=== PATIENT | male | born 1960 | race Asian ===

== ENCOUNTER 2016-09-03 20:39 | Emergency (ER) | payer BC ==
[~2016-09-03] VITALS: Ht 172.7 cm; Wt 95.3 kg
[~2016-09-03 20:39] MED LIST: ASPI-1063 PO; CAR1 PO; HYDR12.55 PO; ISOS5TAB3 PO; LOSA25TA11 PO; POTA8CAP PO; VERA180C2 PO; ZOLP10TA2 PO; [UNRECOGNIZED DRUG - OTHER]
[2016-09-03 20:40] VITALS: BP_SYST 150
[2016-09-03 21:16] LABS: BILIRUBIN,URINE NEGATIVE (NEGATIVE); BLOOD, URINE 3+ (NEGATIVE); CLARITY/URINE HAZY (CLEAR); COLOR,URINE YELLOW (YELLOW); GLUCOSE,URINE NEGATIVE (NEGATIVE); KETONES,URINE NEGATIVE (NEGATIVE); LEUKOCYTE ESTERASE ,URINE NEGATIVE (NEGATIVE); NITRITE, URINE NEGATIVE (NEGATIVE); PH,URINE 6.5 (5.0-8.0); PROTEIN URINE NEGATIVE (NEGATIVE); UROBILINOGEN,URINE 0.2 (0.2-1.0)
[2016-09-03 21:25] LABS: BACTERIA,URINE FEW /HPF (None Seen); RBC,URINE >100 /HPF (0-3); WBC,URINE 0-3 /HPF (0-3)
[2016-09-03] MEDS ORDERED: LORazepam 2 MG/ML VIAL (FOR ER USE) IM ONE (22:00)
[2016-09-03] MEDS ORDERED: KETOROLAC TROMETHAMINE 60 MG/2 ML VIAL IM ONE (22:00)
[2016-09-03] MEDS ORDERED: LORazepam 2 MG/ML VIAL (FOR ER USE) IVP ONE (22:30)
[2016-09-03] MEDS ORDERED: NACL 0.9% 1,000 ML IV ONE (22:30)
[2016-09-03 23:15] LABS: BASOPHILS % (AUTO) 0.6 % (0.0-2.0); EOSINOPHILS # (AUTO) 0.4 K/uL (0.0-0.4); EOSINOPHILS % (AUTO) 5.3 % (0.0-4.0); HEMATOCRIT 41.3 % (36-54); LYMPHOCYTES # (AUTO) 1.9 K/uL (1.0-5.5); LYMPHOCYTES % (AUTO) 28.5 % (20.5-51.5); MEAN CORPUSCULAR HEMOGLOBIN 31 pg (27-31); MEAN CORPUSCULAR HGB CONC 34 % (32-36); MEAN CORPUSCULAR VOLUME 91 fL (79.0-98.0); MONOCYTES # (AUTO) 0.7 K/uL (0.0-1.0); MONOCYTES % (AUTO) 10.8 % (1.7-9.3); NEUTROPHILS # (AUTO) 3.8 K/uL (1.8-7.7); NEUTROPHILS % (AUTO) 54.8 % (40.0-70.0); PLATELET COUNT (AUTO) 165 K/uL (130-430); RED BLOOD CELL COUNT(AUTO) 4.53 MIL/uL (4.2-6.2); RED CELL DISTRIBUTION WIDTH 13.4 % (9.0-15.0); WHITE BLOOD COUNT (AUTO) 6.8 K/uL (4.8-10.8)
[2016-09-03 23:22] LABS: CALCIUM 8.1 mg/dL (8.4-11.0); CREATININE 1.05 mg/dL (0.55-1.30); POTASSIUM 3.3 mmol/L (3.5-5.1)
[2016-09-03 23:27] LABS: ALBUMIN 3.6 g/dL (3.4-4.8); TOTAL BILIRUBIN 0.3 mg/dL (0.0-1.0); TOTAL PROTEIN, SERUM 6.4 g/dL (6.4-8.3)
[2016-09-03] MEDS ORDERED: IOHEXOL 100 ML IV ONE (23:33)
[2016-09-04] MEDS ORDERED: cefTRIAXone 1 GM in D5W 50 ML IV ONE (01:45)
[2016-09-04] MEDS ORDERED: cefTRIAXone 1 GM VIAL ONE (01:49)
[2016-09-04 02:35] VITALS: BP_SYST 133
== END 2016-09-04 02:35 | disposition home or self-care (01) ==
LOC: SED 20:39
DX: R51 Headache (principal); I10 Essential (primary) hypertension; N20.0 Calculus of kidney; V89.2XXA Person injured in unspecified motor-vehicle accident, traffic, initial encounter; Y93.89 Activity, other specified; Y92.89 Other specified places as the place of occurrence of the external cause; Y99.8 Other external cause status
CPT/HCPCS: 36415; 70450; 71010; 72125; 74177; 80053; 81000; 85025; 96361; 96365; 96372; 96375; 99285; J0696; J1885; J2060; J7030; Q9967

== ENCOUNTER 2018-05-27 03:39 | Emergency (ER) | payer BC ==
[~2018-05-27] VITALS: Ht 172.7 cm; Wt 73.5 kg
[~2018-05-27 03:39] MED LIST changes: -ASPI-1063 PO; +ASPI-1153 PO; -LOSA25TA11 PO; +LOSA25TA18 PO
[2018-05-27 03:40] VITALS: BP_SYST 120
[2018-05-27] MEDS ORDERED: ASPIRIN 81 MG TAB.CHEW PO ONE ×2 (04:00)
[2018-05-27] MEDS ORDERED: ONDANSETRON HCL 4 MG/2 ML VIAL IVP ONE (04:00)
[2018-05-27] MEDS ORDERED: NACL 0.9% 1,000 ML IV ONE (04:15)
[2018-05-27] MEDS ORDERED: LORazepam 2 MG/ML VIAL (FOR ER USE) IVP ONE (04:15)
[2018-05-27 04:16] LABS: HEMATOCRIT 39.2 % (36-54); MEAN CORPUSCULAR HEMOGLOBIN 31 pg (27-31); MEAN CORPUSCULAR HGB CONC 33 % (32-36); MEAN CORPUSCULAR VOLUME 93 fL (79.0-98.0); RED CELL DISTRIBUTION WIDTH 14.1 % (9.0-15.0); WHITE BLOOD COUNT (AUTO) 5.6 K/uL (4.8-10.8)
[2018-05-27 04:17] LABS: BASOPHILS % (AUTO) 0.7 % (0.0-2.0); EOSINOPHILS # (AUTO) 0.2 K/uL (0.0-0.4); EOSINOPHILS % (AUTO) 4.2 % (0.0-4.0); LYMPHOCYTES # (AUTO) 1.6 K/uL (1.0-5.5); MONOCYTES # (AUTO) 0.4 K/uL (0.0-1.0); MONOCYTES % (AUTO) 7.7 % (1.7-9.3); NEUTROPHILS # (AUTO) 3.4 K/uL (1.8-7.7); NEUTROPHILS % (AUTO) 59.4 % (40.0-70.0); PLATELET COUNT (AUTO) 153 K/uL (130-430)
[2018-05-27 04:21] LABS: CALCIUM 9.1 mg/dL (8.4-11.0); CREATININE 1.17 mg/dL (0.55-1.30); POTASSIUM 3.2 mmol/L (3.5-5.1)
[2018-05-27 04:26] LABS: ALBUMIN 3.6 g/dL (3.4-4.8); TOTAL BILIRUBIN 0.4 mg/dL (0.0-1.0)
[2018-05-27] MEDS ORDERED: LORA10TA7 PO (04:49)
[2018-05-27] MEDS ORDERED: TRIA1TAB96 PO (04:49)
[2018-05-27] MEDS ORDERED: TIZA4TAB11 PO (04:49)
[2018-05-27] MEDS ORDERED: CITA40TA22 PO (04:49)
[2018-05-27] MEDS ORDERED: LIP20 PO (04:49)
[2018-05-27 07:11] VITALS: BP_SYST 111
== END 2018-05-27 07:11 | disposition home or self-care (01) ==
LOC: SED 03:39
DX: F41.9 Anxiety disorder, unspecified (principal); E87.6 Hypokalemia; J45.909 Unspecified asthma, uncomplicated; I10 Essential (primary) hypertension; Z79.82 Long term (current) use of aspirin; Z79.899 Other long term (current) drug therapy
CPT/HCPCS: 36415; 71045; 80053; 83880; 84484; 85025; 93005; 96374; 96375; 99284; J2060; J2405

== ENCOUNTER 2018-08-24 23:19 | Emergency (ER) | payer BC ==
[~2018-08-24] VITALS: Ht 172.7 cm; Wt 70.3 kg
[~2018-08-24 23:19] MED LIST changes: -CAR1 PO; +CITA40TA22 PO; -HYDR12.55 PO; -ISOS5TAB3 PO; +LIP20 PO; +LORA10TA7 PO; -POTA8CAP PO; +TIZA4TAB11 PO; +TRIA1TAB96 PO; -ZOLP10TA2 PO; -[UNRECOGNIZED DRUG - OTHER]
[2018-08-24] MEDS ORDERED: IOHEXOL 350 mgI/mL, 150 ML INFUS..BTL IV ONE (23:37)
[2018-08-24] MEDS ORDERED: LORazepam 1 MG TABLET PO ONE (23:45)
[2018-08-24] MEDS ORDERED: ALPR0.5T PO (23:49)
[2018-08-25 00:02] VITALS: BP_SYST 128
[2018-08-25 00:08] LABS: BASOPHILS % (AUTO) 0.4 % (0.0-2.0); EOSINOPHILS # (AUTO) 0.2 K/uL (0.0-0.4); EOSINOPHILS % (AUTO) 5.2 % (0.0-4.0); HEMATOCRIT 37.1 % (36-54); HEMOGLOBIN 12.3 g/dL (14.0-18.0); LYMPHOCYTES # (AUTO) 1.6 K/uL (1.0-5.5); LYMPHOCYTES % (AUTO) 35.8 % (20.5-51.5); MEAN CORPUSCULAR HEMOGLOBIN 31 pg (27-31); MEAN CORPUSCULAR HGB CONC 33 % (32-36); MEAN CORPUSCULAR VOLUME 92 fL (79.0-98.0); MONOCYTES # (AUTO) 0.5 K/uL (0.0-1.0); MONOCYTES % (AUTO) 10.6 % (1.7-9.3); NEUTROPHILS # (AUTO) 2.2 K/uL (1.8-7.7); PLATELET COUNT (AUTO) 153 K/uL (130-430); RED BLOOD CELL COUNT(AUTO) 4.03 MIL/uL (4.2-6.2); RED CELL DISTRIBUTION WIDTH 14.1 % (9.0-15.0); WHITE BLOOD COUNT (AUTO) 4.5 K/uL (4.8-10.8)
[2018-08-25 00:13] LABS: ANION GAP 10 (5-15); CALCIUM 8.8 mg/dL (8.4-11.0); CHLORIDE 107 mmol/L (98-107); CREATININE 1.04 mg/dL (0.55-1.30); GLUCOSE 82 mg/dL (70-99); POTASSIUM 3.4 mmol/L (3.5-5.1); SODIUM SERUM 143 mmol/L (136-145); UREA NITROGEN, BLOOD 13 mg/dL (8-21)
[2018-08-25 00:21] LABS: ALANINE AMINOTRANSFERASE 49 U/L (12-78); ALBUMIN 3.4 g/dL (3.4-4.8); ASPARTATE AMINOTRANSFERASE 20 U/L (10-37); GFR AFRICAN AMERICAN 94 mL/min (>90); TOTAL BILIRUBIN 0.6 mg/dL (0.0-1.0)
[2018-08-25 01:36] LABS: BILIRUBIN,URINE NEGATIVE (NEGATIVE); BLOOD, URINE NEGATIVE (NEGATIVE); CLARITY/URINE CLEAR (CLEAR); COLOR,URINE YELLOW (YELLOW); GLUCOSE,URINE NEGATIVE (NEGATIVE); KETONES,URINE TRACE (NEGATIVE); LEUKOCYTE ESTERASE ,URINE NEGATIVE (NEGATIVE); NITRITE, URINE NEGATIVE (NEGATIVE); PH,URINE 7.5 (5.0-8.0); PROTEIN URINE NEGATIVE (NEGATIVE); UROBILINOGEN,URINE 0.2 (0.2-1.0)
[2018-08-25] MEDS ORDERED: NITR0.4T47 SL (02:37)
[2018-08-25] MEDS ORDERED: MORPHINE 4 MG/ML INJ. SYRINGE IVP ONE (03:30)
[2018-08-25] MEDS ORDERED: NACL 0.9% 1,000 ML IV ONE (03:30)
[2018-08-25 09:48] VITALS: BP_SYST 118
== END 2018-08-25 10:19 | disposition short-term general hospital (02) ==
LOC: SED 23:19
DX: E87.6 Hypokalemia (principal); F41.9 Anxiety disorder, unspecified; D64.9 Anemia, unspecified; R07.89 Other chest pain; J45.909 Unspecified asthma, uncomplicated; I10 Essential (primary) hypertension; Z79.82 Long term (current) use of aspirin; Z79.899 Other long term (current) drug therapy
CPT/HCPCS: 36415; 71275; 72191; 74175; 80053; 81003; 84484; 85025; 93005; 96374; 99285; J2270; J7030; Q9967

== ENCOUNTER 2019-04-12 22:45 | Emergency (ER) | payer BC ==
[~2019-04-12] VITALS: Ht 165.1 cm; Wt 70.3 kg
[~2019-04-12 22:45] MED LIST changes: +ALPR0.5T PO; -CITA40TA22 PO; -LORA10TA7 PO; +NITR0.4T47 SL; -TIZA4TAB11 PO; -TRIA1TAB96 PO
[2019-04-12 22:50] VITALS: BP_SYST 139
[2019-04-12] MEDS: NITROGLYCERIN 0.4 MG TAB.SUBL SL ONE (23:23)
[2019-04-12] MEDS: ASPIRIN 325 MG TABLET PO ONE (23:23)
[2019-04-12 23:30] VITALS: BP_SYST 149
== END 2019-04-12 23:30 | disposition short-term general hospital (02) ==
LOC: SED 22:45
DX: I21.3 ST elevation (STEMI) myocardial infarction of unspecified site (principal); J45.909 Unspecified asthma, uncomplicated; I10 Essential (primary) hypertension; Z79.82 Long term (current) use of aspirin; Z79.899 Other long term (current) drug therapy
CPT/HCPCS: 71045; 93005; 99285